=== PATIENT | female | born 2000 | race Two or more races ===

== ENCOUNTER 2018-02-01 00:18 | Emergency (ER) | payer SELFPAY ==
[2018-02-01] MEDS ORDERED: DIPHENHYDRAMINE HCL 50 MG CAPSULE PO ONE (00:33)
--- NOTE | 2018-02-01 00:39 | ER Document Report ---
HPI - HPI Patient complains to provider of: henry Time Seen by Provider: 02/01/18 00:25 Pain Level: 2 Context: Patient is a 17-year-old female presenting to the emergency department complaining of a generalized rash. Patient states she has had this generalized rash every evening for the last 2 months. Patient states she typically uses Benadryl ointment which typically helps with the rash. States this evening the Benadryl ointment was not helping which is why she presents to the emergency room. Patient has not followed up with her primary care provider for this rash. Patient denies any change in shampoo, detergent, fabric softener, perfumes, lotions, pet exposure. Patient denies shortness of breath, vomiting, diarrhea, tightness in her chest or throat. Past medical history: None Medications: None Allergies: None Patient denies cigarette smoking, denies illicit drug use, denies EtOH use. Past Medical History - General Information source: Patient - Social History Smoking Status: Never Smoker Lives with: Family Family History: Reviewed & Not Pertinent - Immunizations Hx Diphtheria, Pertussis, Tetanus Vaccination: Yes Vertical Provider Document - CONSTITUTIONAL Agree With Documented VS: Yes Notes: GENERAL: Alert, interacts well. No acute distress. HEAD: Normocephalic, atraumatic. EYES: Pupils equal, round, and reactive to light. Extraocular movements intact. ENT: Oral mucosa moist, tongue midline. NECK: Full range of motion. Supple. Trachea midline. LUNGS: Clear to auscultation bilaterally, no wheezes, rales, or rhonchi. No respiratory distress. HEART: Regular rate and rhythm. No murmur ABDOMEN: Soft, non-tender. Non-distended. Bowel sounds present in all 4 quadrants. EXTREMITIES: Moves all 4 extremities spontaneously. No edema, normal radial and dorsalis pedis pulses bilaterally. No cyanosis. BACK: no cervical, thoracic, lumbar midline tenderness. No saddle anesthesia, normal distal neurovascular exam. NEUROLOGICAL: Alert and oriented x3. Normal speech. cranial nerves II through XII grossly intact PSYCH: Normal affect, normal mood. SKIN: Warm, dry, normal turgor. Urticarial rash noted bilateral upper arms, abdomen, back, left neck. - INFECTION CONTROL TRAVEL OUTSIDE OF THE [place] IN LAST 30 DAYS: No Course - Re-evaluation Re-evalutation: 02/01/18 00:48 Discussed with patient and urticarial diagnosis. Discussed using oral Benadryl for treatment. Discussed following up with primary care provider for allergy testing. Vital signs reviewed, last heart rate was 90. Nursing notes reviewed. - Vital Signs Vital signs: Temp Pulse Resp BP Pulse Ox 98.1 F 107 H 18 133/70 H 99 02/01/18 00:18 02/01/18 00:18 02/01/18 00:18 02/01/18 00:18 02/01/18 00:18 Discharge - Discharge Clinical Impression: Hives Condition: Stable Disposition: HOME, SELF-CARE Instructions: Acute Urticaria ([facility]) Prescriptions: Diphenhydramine HCl [Benadryl 50 mg Capsule] 50 mg PO Q6 #30 capsule Referrals: KIRSTEN MARCIAL NP [Primary Care Provider] - Follow up as needed [facility] [Provider Group] - Follow up as needed [facility] [Provider Group] - Follow up as needed
[2018-02-01 00:48] VITALS: BP 106/59
== END 2018-02-01 00:59 | disposition home or self-care (01) ==
LOC: ER 00:18
DX: L50.9 Urticaria, unspecified (principal)
CPT/HCPCS: 99282

== ENCOUNTER 2019-03-09 06:48 | Emergency (ER) | payer SELFPAY ==
[2019-03-09] MEDS ORDERED: IBUPROFEN 600 MG TABLET PO ONE (07:23)
[2019-03-09] MEDS ORDERED: BENZONATATE 100 MG CAPSULE PO ONE (07:23)
[2019-03-09 07:53] LABS: A TYPE INFLUENZA AG NEGATIVE (NEGATIVE); B INFLUENZA AG NEGATIVE (NEGATIVE)
--- NOTE | 2019-03-09 08:14 | ER Document Report ---
Entered by THEODORE GO SCRIBE 03/09/19 0715 Acting as scribe for:JUAN A MCNEAL MD ED Flu Like - General Chief Complaint: Flu Symptoms Stated Complaint: SORE THROAT,COUGH Time Seen by Provider: 03/09/19 07:09 Primary Care Provider: JIMI OLMEDO MD [Primary Care Provider] - Follow up as needed Mode of Arrival: Ambulatory Information source: Patient Notes: This 18 year old female patient presents to the ED today with complaints of flu- like symptoms that began last night. Patient states that she had a fever of 102 F this morning and took approximately 650-1000mg of Tylenol near 4:00AM, which brought her temperature down to 99 F. Patient reports a cough, a headache behind her eyes, rhinorrhea, sore throat, chills, and body aches. Patient notes that she has not had a flu shot this year. TRAVEL OUTSIDE OF THE [place] IN LAST 30 DAYS: No - Related Data Allergies/Adverse Reactions: No Known Allergies Allergy (Unverified 03/09/19 07:12) Past Medical History - General Information source: Patient - Social History Smoking Status: Never Smoker Cigarette use (# per day): No Frequency of alcohol use: None Occupation: Customer service at a call center Family History: Reviewed & Not Pertinent Patient has suicidal ideation: No Patient has homicidal ideation: No - Immunizations Hx Diphtheria, Pertussis, Tetanus Vaccination: Yes Review of Systems - Review of Systems Constitutional: See HPI, Chills, Fever EENT: See HPI, Nose discharge, Throat pain Cardiovascular: No symptoms reported Respiratory: See HPI, Cough Gastrointestinal: No symptoms reported Genitourinary: No symptoms reported Female Genitourinary: See HPI, Last menstrual period - x3 weeks ago Musculoskeletal: See HPI, Other - body aches Skin: No symptoms reported Neurological/Psychological: See HPI, Headaches -: Yes All other systems reviewed and negative Physical Exam - Vital signs Vitals: Temp Pulse Resp BP Pulse Ox 99.7 F 122 H 18 120/77 97 03/09/19 06:59 03/09/19 06:59 03/09/19 06:59 03/09/19 06:59 03/09/19 06:59 Interpretation: Normal - General General appearance: Alert In distress: None - HEENT Head: Normocephalic, Atraumatic Eyes: Normal Pupils: PERRL - Respiratory Respiratory status: No respiratory distress Chest status: Nontender Breath sounds: Normal Chest palpation: Normal - Cardiovascular Rhythm: Regular Heart sounds: Normal auscultation Murmur: No - Abdominal Inspection: Normal Distension: No distension Bowel sounds: Normal Tenderness: Nontender Organomegaly: No organomegaly - Back Back: Normal, Nontender - Extremities General upper extremity: Normal inspection General lower extremity: Normal inspection - Neurological Neuro grossly intact: Yes - Psychological Associated symptoms: Normal affect, Normal mood - Skin Skin Temperature: Warm Skin Moisture: Dry Skin Color: Normal Course - Vital Signs Vital signs: Temp Pulse Resp BP Pulse Ox 99.7 F 122 H 18 120/77 97 03/09/19 06:59 03/09/19 06:59 03/09/19 06:59 03/09/19 06:59 03/09/19 06:59 Discharge - Discharge Clinical Impression: Influenza-like illness Condition: Stable Disposition: HOME, SELF-CARE Additional Instructions: Viral Syndrome The physician has diagnosed a viral infection. Viruses not only cause "colds," but can cause many different symptoms including generalized aching, fever, headache, cough, diarrhea, nausea, vomiting, and fatigue. The treatment, for the most part, is simply relief of symptoms. This means that antibiotics are usually not given. Rest, fluids, pain medications and, occasionally, medication for the specific symptoms that are most bothersome will be prescribed. Use good handwashing to avoid passing the virus to others. Shared toys should be cleaned with disinfectant. Clean the toilets, sinks, and counter surfaces in bathrooms. Launder clothing in hot water. Contact the physician if you develop any new or unusual symptoms such as severe headache, stiff neck, high fever, chest pain, productive cough, or shortness of breath. You should be rechecked if you don't see marked improvement within seven to 10 days. Take the Tessalon Perles as prescribed to help control your cough. Also try taking the generic version of Delsym DM to help control your cough. Take Tylenol every 4 hours and ibuprofen 600 mg every 8 hours to help control your fever, and general body aches. Drink lots of fluids and get lots of rest. Follow-up with a local medical doctor if not improving. RETURN TO THE EMERGENCY ROOM IF ANY NEW OR WORSENING SYMPTOMS. Prescriptions: Benzonatate [Tessalon Perles 100 mg Capsule] 100 mg PO ASDIR PRN #30 capsule PRN Reason: Forms: Return to Work Referrals: JIMI OLMEDO MD [Primary Care Provider] - Follow up as needed Scribe Attestation: 03/09/19 07:49 I personally performed the services described in the documentation, reviewed and edited the documentation which was dictated to the scribe in my presence, and it accurately records my words and actions. I personally performed the services described in the documentation, reviewed and edited the documentation which was dictated to the scribe in my presence, and it accurately records my words and actions.
[2019-03-09 08:45] VITALS: BP 118/78
== END 2019-03-09 08:44 | disposition home or self-care (01) ==
LOC: ER 06:48
DX: J11.1 Influenza due to unidentified influenza virus with other respiratory manifestations (principal); R05 Cough; R50.9 Fever, unspecified; R51 Headache; J34.89 Other specified disorders of nose and nasal sinuses; M79.10 Myalgia, unspecified site
CPT/HCPCS: 87804; 99283